=== PATIENT | female | born 1970 | race Caucasian/White ===

== ENCOUNTER 2017-01-27 09:38 | Emergency (ER) | payer BC ==
[~2017-01-27 09:38] MED LIST: ALBUAER2 INH; CETI10TA84 PO; FERR1TAB23 PO; OMEP20TA14 PO; PRENTAB26 PO
[2017-01-27 09:46] VITALS: TEMP 36.9; Ht 157.5 cm
[2017-01-27] MEDS ORDERED: BACITRACIN OINT 15 GM TUBE EXT STA (09:59)
[2017-01-27] MEDS ORDERED: IBUPROFEN 600 MG TAB PO STA (09:59)
[2017-01-27] MEDS ORDERED: OXYCODONE/ACETAMINOPHEN 5-325 TAB PO ONE (10:00)
--- NOTE | 2017-01-27 10:10 | DIAGNOSTIC IMAGING REPORT ---
R KNEE 1 OR 2 VIEWS ROUTINE CLINICAL HISTORY: Right knee pain COMPARISON: December 2008 DISCUSSION: No fractures or dislocations are visualized. There are no erosive or destructive changes. There is a trace joint effusion. IMPRESSION: 1. Trace joint effusion. No fractures identified. Electronically signed by: Jamin Guerrero M.D. 01/27/2017 10:08 AM Dictated Date/Time: 01/27/2017 10:06 AM
[2017-01-27] MEDS ORDERED: OXYC-57 PO (10:17)
[2017-01-27] MEDS ORDERED: PERCOCET HOME PACK PO ONE (10:30)
[2017-01-27 10:37] VITALS: BP 134/86; PULSE 79; O2SAT 98
--- NOTE | 2017-01-27 12:37 | EMERGENCY ROOM VISIT NOTE ---
History Report prepared by Victor Manuel: Yaa Jacobsen Under the Supervision of: Dr. Davidson Robles M.D. First contact with patient: 09:54 Chief Complaint: KNEEPAIN Stated Complaint: DISLOCATED RT KNEE History of Present Illness The patient is a 46 year old female who presents to the Emergency Room with complaints of an episode of knee pain starting prior to arrival. The patient states that she has dislocated her knee before. She states that when it dislocates it goes to the right side. She reports that when she straightens her knee, it pops right back into place. The patient reports that it feels like it is in place now. She denies taking anything for it. She notes that she follows up with Dr. Read. Source of History: patient Onset: prior to arrival Position: knee (right) Quality: other (dislocation) Timing: other (episode) Note: The patient denies it feeling out of place now. Review of Systems See HPI for pertinent positives & negatives. A total of 10 systems reviewed and were otherwise negative. Past Medical & Surgical Medical Problems: (1) Hx of dislocation of knee (2) No pertinent past medical history Family History No pertinent family history Social History Smoking Status: Former Smoker Drug Use: none Marital Status: Housing Status: lives with family Occupation Status: unemployed Current/Historical Medications Scheduled Albuterol (Ventolin), 2 PUFFS INH Q4HR PRN Ferrous Sulfate (Iron), 1 TAB PO Q2D Multivit/Min/Iron/Fol Ac/Pren ( Vitamin), 1 TAB PO DAILY Scheduled PRN Cetirizine (Zyrtec), 10 MG PO DAILY PRN for ALLERGIC REACTION Omeprazole Magnesium (Prilosec Otc), 20 MG PO DAILY PRN for Dyspepsia Oxycodone/Acetaminophen 5MG/325MG (Percocet 5MG/325MG), 1-2 TAB PO Q4H PRN for Pain Allergies Coded Allergies: Amoxicillin (Verified Allergy, Severe, HIVES, 01/27/17) Amitriptyline (Unverified Allergy, Mild, 01/27/17) Barbiturates (Unverified Allergy, Mild, 01/27/17) Belladonna (Unverified Allergy, Mild, 01/27/17) Cyclobenzaprine (Unverified Allergy, Mild, 01/27/17) Famotidine (Unverified Allergy, Mild, 01/27/17) Penicillins (Unverified Allergy, Mild, 01/27/17) Phenobarbital (Unverified Allergy, Mild, 01/27/17) Sulfa Drugs (Unverified Allergy, Mild, 01/27/17) Venlafaxine (Unverified Allergy, Mild, 01/27/17) Quinolones (Unverified Allergy, Unknown, HIVES, 01/27/17) Uncoded Allergies: ANTICHOLINERGIC (Allergy, Mild, 04/11/09) Physical Exam Vital Signs Date Time Temp Pulse Resp B/P (MAP) Pulse Ox O2 Delivery O2 Flow Rate FiO2 01/27/17 10:37 79 18 134/86 98 01/27/17 09:46 36.9 85 20 120/85 99 Room Air Physical Exam GENERAL: Patient is a healthy-appearing well-nourished HEAD: Normocephalic atraumatic EYES: Ocular movements intact pupils equal and react to light OROPHARYNX mucous membranes are moist no exudates present no erythema or edema present NECK: Supple no nuchal rigidity CHEST: Good equal expansion LUNGS: Clear and equal to auscultation CARDIAC: Normal S1 and S2 ABDOMEN: Soft nontender no guarding BACK: No CVA tenderness EXTREMITIES: Normal muscle strength in all groups no clubbing cyanosis or edema. Patella is lax. Normal anterior drawer sign. Normal posterior drawer sign. No pain with varus valgus stress. Good ROM of hip and ankle. Neurovascularly intact. NEURO: Patient is following commands and answering questions appropriately. Alert and oriented x3 Cranial Nerves 2-12 grossly intact Medical Decision & Procedures ER Provider Diagnostic Interpretation: Radiology results as stated below per my review and radiologist interpretation: R KNEE 1 OR 2 VIEWS ROUTINE CLINICAL HISTORY: Right knee pain COMPARISON: December 2008 DISCUSSION: No fractures or dislocations are visualized. There are no erosive or destructive changes. There is a trace joint effusion. IMPRESSION: 1. Trace joint effusion. No fractures identified. Electronically signed by: Jamin Guerrero M.D. 01/27/2017 10:08 AM Dictated Date/Time: 01/27/2017 10:06 AM Medications Administered Medications (Trade) Dose Ordered Sig/Alessio Route Start Time Stop Time Status Last Admin Dose Admin Bacitracin (Bacitracin Oint) 1 appln NOW STAT EXT 01/27/17 09:59 01/27/17 10:02 DC 01/27/17 10:12 1 APPLN Ibuprofen (Motrin Tab) 600 mg NOW STAT PO 01/27/17 09:59 01/27/17 10:02 DC 01/27/17 10:12 600 MG Oxycodone/ Acetaminophen (Percocet 5-325mg Tab) 2 tab NOW ONCE PO 01/27/17 10:00 01/27/17 10:02 DC 01/27/17 10:12 2 TAB Oxycodone/ Acetaminophen (Percocet 5/ 325MG Home Pack) 1 homepack UD ONCE PO 01/27/17 10:30 01/27/17 10:31 DC 01/27/17 10:36 1 HOMEPACK ED Course 0957: Past medical records reviewed. The patient was evaluated in room B11B. A complete history and physical examination was performed. 0959: Ordered Motrin Tab 600 mg, Bacitracin 1 appln EXT. 1000: Ordered Oxycodone/acetaminophen 2 tab PO. 1014: Upon reexamination the patient is resting comfortably. I discussed results and treatment plan with the patient. She verbalizes agreement and understanding. The patient is ready for discharge. 1030: Ordered Oxycodone/ Acetaminophen 1 homepack PO. Medical Decision Etiologies such as fracture, dislocation, neurovascular compromise, compartment syndrome, soft tissue injury, as well as others were entertained. This is a 46-year-old female patient that presents emergency department after a patellar dislocation. The patient was able slight her patella back into place. She has a normal anterior and posterior drawer sign and no varus or vagus stress. I will place a knee immobilizer in place her on crutches for follow-up with orthopedics. Patient was in agreement with the treatment plan. While emergency Department patient did receive IV Profen Percocet. Repeat examination revealed improvement patient's symptoms. Medication Reconcilliation Current Medication List: was personally reviewed by me Blood Pressure Screening Patient's blood pressure: Normal blood pressure Blood pressure disposition: Did not require urgent referral Impression Primary Impression: Patellar dislocation Scribe Attestation The scribe's documentation has been prepared under my direction and personally reviewed by me in its entirety. I confirm that the note above accurately reflects all work, treatment, procedures, and medical decision making performed by me. Departure Information Dispostion Home / Self-Care Prescriptions Oxycodone/Acetaminophen 5MG/325MG (PERCOCET 5MG/325MG) Tab 1-2 TAB PO Q4H Y for Pain, #14 TAB Prov: Davidson Robles MD 01/27/17 Referrals Branden Bonilla M.D.([facility]) (PCP) Forms HOME CARE DOCUMENTATION FORM, IMPORTANT VISIT INFORMATION Patient Instructions My [facility] Additional Instructions Follow up with Dr Read's office You received narcotic or benzodiazepene medication while in the emergency room today. This is an addictive medication that may cause drowziness as well as constipation. Do not drive, operate heavy machinery, or drink alcohol under the influence of this medication. Take 600 mg Ibuprofen every 6 hours Take Percocet for breakthrough pain You have been examined and treated today on an emergency basis only. This is not a substitute for, or an effort to provide, complete comprehensive medical care. It is impossible to recognize and treat all injuries or illnesses in a single emergency department visit. It is therefore important that you follow up closely with Dr Bonilla. Call as soon as possible for an appointment. Thank you for your time and consideration. I look forward to speaking with you again soon. Please don't hesitate to call us if you have any questions. Problem Qualifiers Primary Impression: Patellar dislocation Encounter type: initial encounter Laterality: right Qualified Codes: S83.004A - Unspecified dislocation of right patella, initial encounter
== END 2017-01-27 10:39 | disposition home or self-care (01) ==
LOC: C.EDB 09:39
DX: S83.004A Unspecified dislocation of right patella, initial encounter (principal); X58.XXXA Exposure to other specified factors, initial encounter; Z87.891 Personal history of nicotine dependence

== ENCOUNTER → 2017-03-24 | Outpatient (CLI) | payer BC ==
[~2017-03-24] MED LIST changes: +OXYC-57 PO
== END | disposition home or self-care (01) ==
LOC: C.RDSM 10:20
PROVIDERS: ATTEND Orthopaedic Surgery Sports Medicine
DX: M25.561 Pain in right knee (principal)

== ENCOUNTER → 2017-03-31 | Outpatient (CLI) | payer BC ==
--- NOTE | 2017-03-31 10:20 | DIAGNOSTIC IMAGING REPORT ---
MRI OF THE RIGHT KNEE WITHOUT CONTRAST CLINICAL HISTORY: Right knee pain. Recurrent patellar dislocation. COMPARISON STUDY: Right knee radiographs January 27, 2017 and MRI of the right knee December 25, 2008. TECHNIQUE: Utilizing a 1.5 Pearl magnet and dedicated coil, multiplanar, multiecho imaging of the right knee was performed without intravenous or intraarticular contrast. FINDINGS: Note is made of moderate lateral patellar tilt. The trochlear groove is shallow. Note is made of marked edema within the lateral femoral condyle and the medial patella, similar in appearance to exam of December 25, 2008. This suggests a recurrent recent lateral patellar dislocation and subsequent reduction. An associated 1.5 cm osteochondral injury of the medial patella is noted. There is a tear of the medial patellar retinaculum. There is a moderate sized right knee joint effusion. Extensor mechanism is intact. The cruciate and collateral ligaments are intact. No meniscal tear is identified. There is intrasubstance signal within the posterior horn of the medial meniscus without extension to articular surface. There is no significant chondrosis within the medial and lateral compartments. IMPRESSION: 1. Findings consistent with recent recurrent lateral patellar dislocation and reduction with associated impaction injury of the lateral femoral condyle and medial patella with a 1.5 cm osteochondral injury of the medial patellar. Suspected tear of the medial patellar retinaculum with shallow trochlear groove. 2. Moderate size right knee joint effusion. 3. Intact cruciate and collateral ligaments. 4. No meniscal tear. Electronically signed by: Saleem Thompson M.D. 03/31/2017 10:18 AM Dictated Date/Time: 03/31/2017 10:07 AM
== END | disposition home or self-care (01) ==
LOC: C.MRI 08:32
PROVIDERS: ATTEND Orthopaedic Surgery Sports Medicine
DX: S83.011D Lateral subluxation of right patella, subsequent encounter (principal); X58.XXXD Exposure to other specified factors, subsequent encounter; M25.461 Effusion, right knee

== ENCOUNTER → 2017-04-22 | Day surgery (SDC) | payer BC ==
[2017-04-11 15:38] VITALS: Ht 158.8 cm; Wt 61.4 kg
[~2017-04-22] VITALS: Ht 158.8 cm; Wt 61.4 kg
[~2017-04-22] MED LIST changes: +ACETAMINOPHEN 1000 MG/100 ML IV IV ONE; -ALBUAER2 INH; +BUPIVACAINE/EPINEPHRINE 0.5% MPF 1:200,000 30 ML VIAL ONE; +CLINDAMYCIN PHOS 150 MG/ML 2 ML VIAL IV SCH; +DEXAMETHASONE SOD INJ 4 MG/ML VIAL ONE; +EpHEDrine SULFATE INJ 50 MG/ML AMP IV PRN; +EpINEphrine HCL INJ 1 MG/ML 1ML SYRINGE ONE; +FENTANYL CITRATE INJ 50 MCG/1 ML 2 ML VIAL ONE; -FERR1TAB23 PO; +HYDROmorphone INJ 1 MG/ML SYR IV PRN; +LACTATED RINGER'S 1000ML 1,000 ML IV SCH; +LIDOCAINE HCL 1% MPF 2 ML VIAL ONE; +LIDOCAINE HCL 2% 2 ML VIAL (20MG/ML) ONE; +LIDOCAINE MPF 1% INJ 30 ML SDV (L&D) INFIL ONE; +MIDAZOLAM HCL 1 MG/ML 2ML VIAL ONE; +MULT-506 PO; +MoRPHine SULFATE 2 MG/ML CARP IV PRN; +MoRPHine SULFATE 4 MG/ML 1 ML CARP\\VIAL IV PRN; +ONDANSETRON INJ 2 MG/ML 2 ML VIAL IV PRN; +ONDANSETRON INJ 2 MG/ML 2 ML VIAL ONE; -OXYC-57 PO; +OXYCODONE/ACETAMINOPHEN 5-325 TAB PO PRN; +PHENYLEPHRINE 100MCG/ML 5ML SYR IV PRN; -PRENTAB26 PO; +PROMETHAZINE HCL INJ 12.5 MG in SODIUM CHLORIDE 0.9% 50ML 50 ML IV PRN; +PROPOFOL IV EMULSION 10 MG/ML 20 ML VIAL IV ONE; +ROPIVACAINE 0.5% 5 MG/ML 30 ML VIAL ONE; +VNTHFA/IN INH
--- NOTE | 2017-04-22 10:24 | History & Physical Bridge - SC ---
H&P Re-Evaluation Bridge Note: I have examined the patient, reviewed the History & Physical and in the interval since the performance of the History & Physical I have noted the following changes of clinical significance: No changes noted. Plan arthroscopy with meniscus debridement versus repair, chondroplasty versus microfacture as well as discussed with patient.
--- NOTE | 2017-04-22 13:38 | [facility] Post Operative Brief Note ---
Immediate Operative Summary Operative Date Apr 22, 2017. Pre-Operative Diagnosis Left Knee Patellar Instability Post-Operative Diagnosis Same Procedure(s) Performed 1) Open Medial Patella Femoral Ligament Reconstruction With Hamstring Autograft. 2) Right Knee Arthroscopy With Chondroplasty. 3) Exam Under Anesthesia. Surgeon Dr. Read Science Faculty Member Surgeon(s) SUNITHA Correa PA-C Estimated Blood Loss 15 ml Findings Consistent with Post-Op Diagnosis Fluids (cc crystalloids) 1050 Specimens None Drains None Anesthesia Type General Regional Complication(s) none Disposition Disposition: Recovery Room / PACU (Stable)
--- NOTE | 2017-04-22 13:44 | Discharge Instructions-SurgCtr ---
Discharge Instructions Date of Service Apr 22, 2017. Visit Reason for Visit: Right Knee Patellar Instability Discharge Discharge Diagnosis / Problem: Statu spost MPFL reconstruction Discharge Goals Goal(s): Decrease discomfort, Improve function, Increase independence Activity Recommendations Activity Limitations: per Instructions/Follow-up section May Resume Sexual Activity: when tolerated Shower/Bathe: may shower/bathe in 3 days Driving or Machine Use: Not while on Narcotics or in brace. Weightbearing Status: Right non-weightbearing Anesthesia . Post Anesthesia Instructions: If you have had General Anesthesia or IV Sedation: * Do not drive today. * Resume driving when surgeon permits. * Do not make important decisions or sign legal documents today. * Call surgeon for: 1. Temperature elevations greater than 101 degrees F. 2. Uncontrollable pain. 3. Excessive bleeding. 4. Persistent nausea and vomiting. 5. Medication intolerance (nausea, vomiting or rash). * For nausea and vomiting use only clear liquids such as: tea, soda, bouillon until nausea subsides, then gradually increase diet as tolerated. * If you have any concerns or questions, call your surgeon's office. If physician is unavailable and it is an emergency, call 911 or go to the nearest emergency room. . Diet Recommendations Home Diet: resume previous diet Procedures Procedures Performed: 1) Open Medial Patella Femoral Ligament Reconstruction With Hamstring Autograft. 2) Right Knee Arthroscopy With Chondroplasty. 3) Exam Under Anesthesia. Pending Studies Studies pending at discharge: no Medical Emergencies . Who to Call and When: Medical Emergencies: If at any time you feel your situation is an emergency, please call 911 immediately. . Non-Emergent Contact Non-Emergency issues call your: Surgeon Call Non-Emergent contact if: temperature is above 101.5, your pain is not controlled, wound has increased drainage, wound has increased redness . . "Provider Documentation" section prepared by Israel Read. .
--- NOTE | 2017-04-22 13:45 | [facility] Operative Report ---
Operative Report Operative Date Apr 22, 2017. Pre-Operative Diagnosis Left Knee Patellar Instability Post-Operative Diagnosis Same Procedure(s) Performed 1) Open Medial Patella Femoral Ligament Reconstruction With Hamstring Autograft. 2) Right Knee Arthroscopy With Chondroplasty. 3) Exam Under Anesthesia. Surgeon Dr. Read Check Writer Surgeon(s) SUNITHA Correa PA-C Estimated Blood Loss 15 ml Findings The right knee was examined under anesthesia. Range of motion was 0-140 degrees. Ligamentous examination exhibited: stable Edouard, posterior drawer, varus and valgus stress at 0 & 30 degrees. Lateral displacement 2+ quadrants, medial displacement 1 quadrant, able to samuel the patella slightly above neutral. ARTHROSCOPIC FINDINGS: 1) PATELLOFEMORAL JOINT: The articular cartilage of the Patella had Outerbridge type 2 changes centrally and evidence of healing along the MPF inferior/ medially. The Trochlea articular cartilage was intact, with a shallow groove. There was also noted patellar subluxation laterally. 2) GUTTERS: There was a small loose body within the lateral gutter. 3) MEDIAL COMPARTMENT: The articular cartilage of the femur and Tibia Type 1 changes. The medial meniscus was intact. 4) ACL/PCL: They were both visualized and probed to be intact. 5) LATERAL COMPARTMENT: The lateral compartment was then entered in a figure-of- four position. The femoral articular cartilage was normal. The articular cartilage of the lateral tibial plateau was normal. The lateral meniscus had partial tears less then 3 mm both on the superior and undersurface, that required no intervention. 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 I recommended that a right knee arthroscopy be performed with meniscus repair vs debridement, possible chondroplasty versus microfracture, lateral retinacular lengthening, and MPFL reconstruction with autograft. The patient understands the risks of surgery, which include but not limited to: bleeding, infection, re-operation, damage to nerves and arteries, continued knee pain, progression of OA, DVT, hardware failure, HIV and hepatitis C transmission, and a 2-5% risk of becoming worse after surgery. The patient understands all of these instructions and explanations, all of his questions have been satisfactorily addressed and the patient has elected to proceed. Informed consent was signed. Description of Procedure IMPLANTS: 1) SutureTak with FiberTape x 2 (Arthrex). 2) 5.5 mm SwiveLock (Arthrex). PROCEDURE:The patient was taken to the Operating Room and placed in the supine position after general anesthetic was administered. My initials and a multidisciplinary time-out were used to identify the left leg as the correct operative limb. Prior to the incision, 900 mg of intravenous clindamycin was given. The right leg was then prepped and draped in a standard sterile fashion. The planned anterior oblique incision, medial incision adjacent to the patella and small medial incision over the abductor tubercle, the anterolateral portal, and the anteromedial portal were injected with 12 cc of a 50:50 mix of 1% Lidocaine plain and 0.5% Bupivacaine with epinephrine. An anterolateral arthroscopic portal was established with an 11-blade. Next, the arthroscope was introduced into the knee. A diagnostic arthroscopy commenced and anteromedial portal was established under direct visualization using a spinal needle followed by an 11 blade in the standard fashion. The above findings were observed during the diagnostic arthroscopy. The anterior fat pad was debrided as it was encounter with mechanical shaver. The articular cartilage damage was debrided back to stable margins as they were encountered with mechanical shaver. The knee was copiously irrigated. The arthroscopic instruments were then removed. Graft Stephenson: With the knee bent 40-50 degrees a #10-blade was used to make sharp dissection approximately 5 cm. Blunt dissection was used to identify the Sartorious fascia. This was incised along its superior border and T distally. The Gracilis and Semitendinosus were identified and tagged. All adhesions were bluntly and sharply dissected off the gracilis tendon. The gracilis was sharply dissected off the bone distally and a Krackow stitch was placed with a # 2 FiberWire. The tendon was delivered into the wound and the remaining adhesions were removed. A closed end graft harvester was used to then harvest the gracilis tendon in the standard fashion. The graft was placed on the back table for preparation. All excess muscle was removed. It was doubled over and found to fit an 6 mm. The graft length was 200 mm. A medial arthrotomy was performed exposing the proximal third of the patella. The border of the patella was freshened up with a rongeur. 2 SutureTacks were placed in the superior half of the patella 1 cm apart. A tunnel was created through the second and third layer medially and carried down to the medial epicondyles. A small 2 cm incision was created just anterior to the medial epicondyles. A suture was passed that would be used later to pass the graft. Then utilizing the aiming guide and fluoroscopy true lateral was obtained and the starting point for the femoral tunnel once found, the guidepin was placed in an anterior and proximal direction. The graft was trimmed to allow fit through a 6 mm sizer and the 2 ends of the graft were sutured together with #2 FiberLoop. The folded over end of the graft was then sutured to the patella at the corners and further one limb from each and was placed through the graft and tied together centrally. The graft was then transported through the second and third layer toward the starting point and the isometry was found to be ideal. The tunnel was then created with a 6 mm reamer to approximately 50 mm. The graft was then introduced into the femoral tunnel care taken not to over tighten the graft, with the knee at 30 of flexion. The graft tension was ideal and the 5.5 mm tenodesis screw was placed. The patella was found to be sitting in an ideal central location with flexion and extension of the knee. The arthrotomy was closed using the limbs of the FiberTape . The deep fascia overlying the patella was closed using 0 Vicryl. The arthroscope was reintroduced into the knee and the patella was sitting centrally with the knee in extension, and tracked centrally through 90 range of motion. The Sartorius fascia was closed with 0 Vicryl. the deep fat was closed with 2 -0 Vicryl. The wounds were copiously irrigated. The subcutaneous layers were closed with 3-0 Vicryl. The skin was closed wit 4-0 Monocryl in a subcuticular fashion. The leg was cleaned and dried. Dermabond was placed over top. Once that had dried Steri-Strips were placed. The wounds were dressed with sterile gauze, ABDs, sterile Webril, and a foot to thigh Denilson bandage. A hinged range of motion knee brace was placed locked in extension. The patient was then transferred to the Recovery Room in stable condition. The sponge and needle counts were correct. Post-op Instructions: The patient will be non-weightbearing for 3 weeks. The patient may remove the operative dressing on Post-Op Day #2 and apply Band-Aids to the wounds. The patient may shower in 72 hours and is to wear the WHITLEY for 2 weeks on the operative limb. The patient is to use the pain medicine as needed and take the Motrin for 3 weeks. The patient was also given a handout for home exercises, which they may begin tomorrow. The patient was given a prescription for PT and is scheduled for an appointment later this week. The patient is to follow up with me in 10-15 days. I attest to the content of the Intraoperative Record and any orders documented therein. Any exceptions are noted below.
[2017-04-22] MEDS: FENTANYL CITRATE INJ 50 MCG/1 ML 2 ML VIAL IV PRN ×2 (14:06→14:19)
[2017-04-22 14:39] VITALS: TEMP 36.4
[2017-04-22 15:30] VITALS: BP 127/79; PULSE 73; O2SAT 99
--- NOTE | 2017-04-22 15:37 | Anesthesia Progress Nt - [facility] ---
Anesthesia Post Op Note Date & Time Apr 22, 2017 at 15:37 Vital Signs Pain Intensity: 2 Vital Signs Past 12 Hours Date Time Temp Pulse Resp B/P (MAP) Pulse Ox O2 Delivery O2 Flow Rate FiO2 04/22/17 15:30 73 16 127/79 (95) 99 Room Air 04/22/17 14:39 36.4 85 16 124/80 (95) 99 Room Air 04/22/17 14:29 94 21 04/22/17 14:29 93 21 100 04/22/17 14:28 36.2 94 12 144/86 99 Room Air 04/22/17 14:25 144/86 04/22/17 14:24 92 15 04/22/17 14:24 88 15 100 04/22/17 14:20 130/82 04/22/17 14:19 92 18 04/22/17 14:19 93 18 100 04/22/17 14:15 127/82 04/22/17 14:14 89 10 04/22/17 14:14 88 10 100 04/22/17 14:10 128/82 04/22/17 14:09 90 15 100 04/22/17 14:09 88 15 04/22/17 14:05 129/83 04/22/17 14:04 83 10 100 04/22/17 14:04 83 10 04/22/17 14:00 125/91 04/22/17 13:59 90 13 18 13:59 90 13 100 04/22/17 13:55 148/104 04/22/17 13:54 95 15 100 04/22/17 13:54 94 15 04/22/17 13:51 142/92 04/22/17 13:51 36.7 103 12 142/92 100 Mask 6 04/22/17 10:49 0 04/22/17 10:48 0 04/22/17 10:47 0 04/22/17 10:46 139/102 04/22/17 10:42 93 18 10:42 93 5 100 18 10:41 140/74 18 10:37 92 7 100 18 10:37 92 04/22/17 10:36 158/82 04/22/17 10:32 82 04/22/17 10:32 83 97 04/22/17 10:31 150/85 04/22/17 10:27 94 0 166/101 99 04/22/17 10:27 93 04/22/17 10:22 0 04/22/17 10:17 92 04/22/17 10:17 93 0 100 04/22/17 10:12 78 0 100 04/22/17 10:12 78 04/22/17 10:07 82 0 98 04/22/17 10:07 84 04/22/17 10:02 79 04/22/17 10:02 78 0 98 04/22/17 09:57 79 04/22/17 09:57 80 0 98 04/22/17 09:52 77 0 99 04/22/17 09:52 77 04/22/17 09:47 0 04/22/17 09:42 0 04/22/17 09:37 0 04/22/17 09:32 0 04/22/17 09:06 36.8 74 16 115/68 (84) 98 Room Air Notes Mental Status: alert / awake / arousable, participated in evaluation Pt Amnestic to Procedure: Yes Nausea / Vomiting: adequately controlled Pain: adequately controlled Airway Patency, RR, SpO2: stable & adequate BP & HR: stable & adequate Hydration State: stable & adequate Anesthetic Complications: no major complications apparent Pt doing well. Nausea improved after zofran. VSS. Ready for d/c
== END | disposition home or self-care (01) ==
LOC: X.SURG 08:44
PROVIDERS: ATTEND Orthopaedic Surgery Sports Medicine
DX: M25.362 Other instability, left knee (principal); K21.9 Gastro-esophageal reflux disease without esophagitis; E78.5 Hyperlipidemia, unspecified; F32.9 Major depressive disorder, single episode, unspecified; F41.9 Anxiety disorder, unspecified; Z98.890 Other specified postprocedural states; Z98.818 Other dental procedure status; Z79.899 Other long term (current) drug therapy; Z87.891 Personal history of nicotine dependence; Z88.8 Allergy status to other drugs, medicaments and biological substances; Z88.1 Allergy status to other antibiotic agents; Z88.2 Allergy status to sulfonamides; Z82.3 Family history of stroke; Z83.3 Family history of diabetes mellitus; Z82.49 Family history of ischemic heart disease and other diseases of the circulatory system; Z80.9 Family history of malignant neoplasm, unspecified